=== PATIENT | female | born 1950 | race Caucasian/White ===

== ENCOUNTER 2023-01-10 21:09 | Inpatient (IN) | payer MEDICARE, OTHER ==
[~2023-01-10] VITALS: Ht 154.9 cm; Wt 54.4 kg
[2023-01-10] MEDS ORDERED: hydrALAZINE HCL 20 MG/1 ML VIAL IV ONE (21:30)
[2023-01-10 21:38] LABS: HEMATOCRIT 42.7 % (31.2-41.9); MEAN CORPUSCULAR HEMOGLOBIN 29.1 uug (24.7-32.8); MEAN CORPUSCULAR VOLUME 87.7 fL (75.5-95.3); PLATELET COUNT (AUTO) 442 K/uL (179-408)
[2023-01-10 21:49] LABS: POTASSIUM 4.3 mmol/L (3.5-5.1)
[2023-01-10 21:54] LABS: BILIRUBIN,TOTAL 0.6 mg/dL (0.2-1.0); MAGNESIUM 1.9 mg/dL (1.8-2.4); TOTAL PROTEIN, SERUM 7.4 g/dL (6.4-8.2)
[2023-01-10] MEDS ORDERED: hydrALAZINE HCL 20 MG/1 ML VIAL ONE (22:02)
--- NOTE | 2023-01-10 22:06 | NUR ---
Pt sister is at bedside. Pt is in bed laying down.
[2023-01-10] MEDS ORDERED: LEVO75TA PO (22:26)
[2023-01-10] MEDS ORDERED: PANT40TA2 PO (22:26)
[2023-01-10] MEDS ORDERED: RUXO10TA PO (22:26)
[2023-01-10] MEDS ORDERED: BUPR100T5 PO (22:27)
[2023-01-10] MEDS ORDERED: MEMA10TA PO (22:28)
[2023-01-10] MEDS ORDERED: ROSU20TA2 PO (22:29)
[2023-01-10] MEDS ORDERED: CLOP75TA15 PO (22:29)
[2023-01-10] MEDS ORDERED: FAMO-132 PO (22:31)
[2023-01-10] MEDS ORDERED: AMLO5TAB4 PO (22:32)
[2023-01-10] MEDS ORDERED: LOSA25TA3 PO (22:33)
--- NOTE | 2023-01-10 22:53 | NUR ---
Celled [employer] for a panel call. 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
[2023-01-10] MEDS ORDERED: ONDANSETRON 4 MG/2 ML VIAL ONE (23:14)
[2023-01-10] MEDS ORDERED: MORPHINE SULFATE 4 MG/1 ML DISP.SYRIN IV ONE (23:15)
[2023-01-10] MEDS ORDERED: ONDANSETRON 4 MG/2 ML VIAL IV ONE (23:15)
--- NOTE | 2023-01-10 23:18 | NUR ---
Patient was taken to CT.
[2023-01-11] VITALS (8 sets, daily range): BP systolic 89–142; BP diastolic 50–75
--- NOTE | 2023-01-11 | NUR ---
Patient's sister, Xiomy, left her phone in case of any updates or need for information.
--- NOTE | 2023-01-11 00:15 | NUR ---
Spoke to CASSI Calvert. Patient assigned rm [id number], under care of CASSI Marley.
[2023-01-11] MEDS ORDERED: hydrALAZINE HCL 20 MG/1 ML VIAL IV PRN (01:15)
[2023-01-11] MEDS ORDERED: MORPHINE SULFATE 2 MG/1 ML DISP.SYRIN IVP PRN (01:15)
[2023-01-11] MEDS ORDERED: ONDANSETRON 4 MG/2 ML VIAL IV PRN (01:15)
--- NOTE | 2023-01-11 01:53 | NUR ---
Called third floor and gave report to Donell YE.
--- NOTE | 2023-01-11 03:10 | NUR ---
PATIENT ADMITTED FROM ER VIA WHEELCHAIR ACCOMPANIED BY CASSI STEIN IN STABLE CONDITION. PATIENT MOVED TO BED AND MADE COMFORTABLE. AOX4 AND ABLE TO MAKE NEEDS KNOWN. BELONGING INVENTORIED. ALL NEEDS MET AND ATTENDED. CALL LIGHT IN REACH AND FUNCTIONAL. ENCOURAGE PATIENT TO USE CALL LIGHT FOR ASSISTANCE.
--- NOTE | 2023-01-11 03:10 | NUR ---
Patient was transferred upstairs via wheelchair. CASSI Marley made aware of patient's arrival.
--- NOTE | 2023-01-11 03:23 | NUR ---
Called third floor to notify Donell RN that ER Dr. Hooker ordered Aspirin 325mg for pt. Spoke to hall monitor Michelle and said that she will notify Donell.
[2023-01-11] MEDS ORDERED: ASPIRIN 325 MG TABLET PO ONE (03:30)
[2023-01-11] MEDS ORDERED: ASPIRIN 325 MG TABLET ONE (03:39)
[2023-01-11 07:56] LABS: HEMATOCRIT 45.7 % (31.2-41.9); MEAN CORPUSCULAR HEMOGLOBIN 28.7 uug (24.7-32.8); MEAN CORPUSCULAR VOLUME 87.7 fL (75.5-95.3); PLATELET COUNT (AUTO) 490 K/uL (179-408)
[2023-01-11] MEDS ORDERED: FUROSEMIDE 40 MG/4 ML VIAL IV ONE (08:00)
[2023-01-11 08:05] LABS: CREATININE 0.9 mg/dL (0.6-1.3); POTASSIUM 4.1 mmol/L (3.5-5.1)
[2023-01-11] MEDS: LOSARTAN POTASSIUM 50 MG TABLET PO SCH ×2 (08:39→08:45)
[2023-01-11] MEDS: HEPARIN SODIUM,PORCINE 5,000 UNITS/ML VIAL SQ SCH ×2 (08:39→21:16)
[2023-01-11] MEDS: DOCUSATE SODIUM 100 MG CAPSULE PO SCH ×4 (08:39→17:02)
--- NOTE | 2023-01-11 08:54 | NUR ---
Sister of patient aware of ct head result not showing a stroke or bleeding, says patient uses benecar at home; Does not use coozar because it causes the patient blood pressure to go higher afterward sister says; Wants to know medication reconciliation for home, wants echo.
--- NOTE | 2023-01-11 09:27 | NUR ---
Another family member who says she is a MD has been aware of no angel and would like to know why no blood pressure medication has been prescribed. Made aware sister says cozaar makes blood pressure go higher and of lasix given. She says lasix will not help. Notes patient is followed by Doctor Dennis Pichardo.
[2023-01-11] MEDS ORDERED: MEMA7CAP2 PO (10:27)
[2023-01-11] MEDS ORDERED: OLME1TAB19 PO (10:28)
[2023-01-11] MEDS ORDERED: FAMO40TA7 PO (10:30)
[2023-01-11] MEDS ORDERED: OMAL150S SQ (10:33)
[2023-01-11] MEDS ORDERED: RUXOLITINIB PHOSPHATE 10 MG PO SCH (11:00)
[2023-01-11] MEDS: buPROPion SR 100 MG TABLET.SA PO SCH ×3 (11:00→17:04)
[2023-01-11] MEDS: ACETAMINOPHEN 325 MG TABLET PO PRN ×2 (11:53→12:36)
[2023-01-11] MEDS ORDERED: LEVOTHYROXINE SODIUM 75 MCG TABLET PO SCH ×2 (12:00→12:23)
--- NOTE | 2023-01-11 12:07 | NUR ---
Patient refuses tylenol for headache and wellbutrin for depression. Orthostatic vital signs unremarkable.
[2023-01-11] MEDS: MEMANTINE HCL 5 MG TABLET PO SCH ×2 (12:51→21:12)
[2023-01-11] MEDS: PANTOPRAZOLE SODIUM 40 MG TABLET.DR PO SCH (12:51)
[2023-01-11] MEDS: CLOPIDOGREL 75 MG TABLET PO SCH (12:51)
[2023-01-11] MEDS: [UNRECOGNIZED DRUG - OTHER] PO SCH (16:00)
--- NOTE | 2023-01-11 16:05 | NUR ---
Sister of patient present refuses medication because patient blood pressure has been 100's systolic. Sister is asking about echo, pending at this time.
[2023-01-11] MEDS ORDERED: FAMOTIDINE 20 MG TABLET PO SCH (21:00)
[2023-01-11] MEDS ORDERED: ATORVASTATIN 40 MG TABLET PO SCH (21:00)
[2023-01-12] VITALS: BP 110/61
[2023-01-12 04:00] VITALS: BP 113/61
[2023-01-12 06:40] LABS: HEMATOCRIT 46.9 % (31.2-41.9); MEAN CORPUSCULAR HEMOGLOBIN 28.5 uug (24.7-32.8); MEAN CORPUSCULAR VOLUME 87.7 fL (75.5-95.3); PLATELET COUNT (AUTO) 457 K/uL (179-408)
[2023-01-12 07:02] LABS: BILIRUBIN,TOTAL 0.7 mg/dL (0.2-1.0); PHOSPHOROUS 4.3 mg/dL (2.5-4.9); POTASSIUM 3.6 mmol/L (3.5-5.1); TOTAL PROTEIN, SERUM 7.2 g/dL (6.4-8.2)
[2023-01-12 07:11] LABS: THYROID STIMULATING HORMONE 0.82 mIU/mL (0.358-3.740)
[2023-01-12] MEDS: PANTOPRAZOLE SODIUM 40 MG TABLET.DR PO SCH (07:21)
--- NOTE | 2023-01-12 08:06 | NUR ---
Patient had a very great night. She denied pain, SOB, migraines. She is med compliant, corporative with staff. She slept without any discomfort. Will continue to monitor patient for safety.
[2023-01-12] MEDS: MEMANTINE HCL 5 MG TABLET PO SCH (08:57)
[2023-01-12] MEDS: DOCUSATE SODIUM 100 MG CAPSULE PO SCH (08:57)
[2023-01-12] MEDS: CLOPIDOGREL 75 MG TABLET PO SCH (08:57)
[2023-01-12] MEDS: buPROPion SR 100 MG TABLET.SA PO SCH (08:58)
[2023-01-12] MEDS: HEPARIN SODIUM,PORCINE 5,000 UNITS/ML VIAL SQ SCH (08:59)
[2023-01-12] MEDS: [UNRECOGNIZED DRUG - OTHER] PO SCH (09:05)
[2023-01-12 09:06] VITALS: BP 122/70
[2023-01-12 09:19] VITALS: BP_SYST 133; BP_SYST 139; BP_SYST 149; BP_DIAS 75; BP_DIAS 80; BP_DIAS 98
[2023-01-12 11:21] VITALS: BP 111/82
[2023-01-12] MEDS ORDERED: HYDR-4075 PO (12:30)
[2023-01-12] MEDS ORDERED: AMLO5TAB4 PO (12:30)
--- NOTE | 2023-01-12 13:41 | NUR ---
JAKAFI 10MG NOT ADMINISTERED, PATIENT STATED SHE TOOK IT IN THE MORNING HERSELF
--- NOTE | 2023-01-12 13:42 | NUR ---
patient alert, oriented x4, no sob, respirations are even nonlabored, skin warm and dry to touch, no distress noted, patient discharged home with sister, IV and ID removed, medications teaching provided to patient and sister, patient and sister verbalized understanding of it. belongings are accounted and signed. patient left with sister safely.
[2023-01-14 08:06] LABS: CORTISOL 9.6 ug/dL (.)
== END 2023-01-12 13:25 | disposition home or self-care (01) | DRG 304 ==
LOC: ER 21:09 → TELE3 01-11 02:53
PROVIDERS: ADMIT Internal Medicine; ATTEND Nurse Practitioner Acute Care
DX: I16.9 Hypertensive crisis, unspecified (principal); I50.31 Acute diastolic (congestive) heart failure; I11.0 Hypertensive heart disease with heart failure; R11.2 Nausea with vomiting, unspecified; K21.9 Gastro-esophageal reflux disease without esophagitis; F32.A Depression, unspecified; E03.9 Hypothyroidism, unspecified; R51.9 Headache, unspecified; Z79.890 Hormone replacement therapy; Z79.899 Other long term (current) drug therapy; Z79.02 Long term (current) use of antithrombotics/antiplatelets; Z20.822 Contact with and (suspected) exposure to COVID-19; R42 Dizziness and giddiness
CPT/HCPCS: 36415; 70450; 71045; 82088; 82533; 83735; 84100; 84244; 84443; 84484; 85025; 93005; 93307; G0378; J0360; J1644; J1940; J2405